=== PATIENT | male | born 1990 | race Caucasian/White ===

== ENCOUNTER 2021-10-26 22:37 | Emergency (ER) | payer OTHER ==
[~2021-10-26] VITALS: Ht 162.6 cm; Wt 87.1 kg
[2021-10-26 22:48] VITALS: BP 159/93
--- NOTE | 2021-10-26 22:52 | NUR ---
TO LOBBY A/W BED AMBULATORY
[2021-10-26] MEDS ORDERED: KETOROLAC 60 MG/2 ML VIAL IM ONE (23:55)
[2021-10-27] MEDS ORDERED: KETO10TA2 PO (02:59)
--- NOTE | 2021-10-27 03:50 | NUR ---
pt d/c by Dr. Garcia.
== END 2021-10-27 03:50 | disposition home or self-care (01) ==
LOC: MED 22:37
DX: M54.50 Low back pain, unspecified (principal); R07.89 Other chest pain; Z79.899 Other long term (current) drug therapy; V49.9XXA Car occupant (driver) (passenger) injured in unspecified traffic accident, initial encounter; Y93.89 Activity, other specified; Y92.411 Interstate highway as the place of occurrence of the external cause; Y99.8 Other external cause status
CPT/HCPCS: 71101; 72110; 96372; 99284; J1885